=== PATIENT | female | born 1935 | race Caucasian/White ===

== ENCOUNTER → 2018-02-07 | Outpatient (CLI) | payer MEDICARE | LOC: GMAJ 14:30 | PROVIDERS: ATTEND Family Medicine | DX: D51.3 Other dietary vitamin B12 deficiency anemia (principal) ==

== ENCOUNTER → 2018-08-05 | Outpatient (CLI) | payer MEDICARE | LOC: GMAJ 12:25 | PROVIDERS: ATTEND Family Medicine | DX: E53.8 Deficiency of other specified B group vitamins (principal) ==

== ENCOUNTER → 2018-08-17 | Outpatient (CLI) | payer MEDICARE, OTHER ==
--- NOTE | 2018-08-18 09:32 | MRI ---
EXAM DESCRIPTION: Cervical Spine CLINICAL HISTORY: 83 years Female, CERVICAL DISC DISORDER WITH RADICULOPATHY COMPARISON: None. TECHNIQUE: Multisequence, multiplanar images of the cervical spine were obtained without intravenous contrast. FINDINGS: Vertebrae: No acute fracture. No acute compression deformity. Severe cervical lordosis centered at C4. AP alignment is maintained. Marrow signal predominantly within normal limits Spinal cord: The cervical cord is normal in signal and contour. Cerebellar tonsils are normal in position. Discs, facets, spinal canal, and neural foramina: Disc desiccation throughout the cervical spine. Mild disc space narrowing posteriorly at C3-C4, C4-C5, C5-C6. C2-C3: Small disc osteophyte complex. Spinal canal and neuroforamina are patent. C3-C4: No disc osteophyte complex. Mild right and moderate left facet arthropathy. Spinal canal and neuroforamina are patent. C4-C5: No disc osteophyte complex. Mild right and moderate left uncovertebral spurring. Moderate right and severe left facet arthropathy. Mild spinal canal stenosis. Neuroforamina are patent. C5-C6: Small disc osteophyte complex with moderate uncovertebral spurring. Moderate right and severe left facet arthropathy. Spinal canal is patent. Neuroforamina are patent. C6-C7: No disc osteophyte complex. Moderate uncovertebral spurring. Moderate severe facet arthropathy. Spinal canal and neuroforamina are patent. C7-T1: Spinal canal and neuroforamina are patent. Other findings: Paravertebral soft tissues unremarkable. IMPRESSION: 1. No acute fracture or acute compression deformity. 2. Cervical spondylosis with exaggerated severe kyphosis centered at C4 without listhesis. 3. No greater than mild spinal canal stenosis. 4. Spinal canal and neuroforamina are predominantly patent. Electronically signed by: Krzysztof Best MD 08/18/2018 9:29 AM CDT
--- NOTE | 2018-08-18 09:39 | MRI ---
EXAM DESCRIPTION: Lumbar Spine w/o Contrast CLINICAL HISTORY: 83 years Female, SPINAL STENOSIS LUMBAR REGION COMPARISON: MRI lumbar spine 08/15/2012 TECHNIQUE: Multisequence, multiplanar images of the lumbar spine without intravenous contrast. FINDINGS: For the purpose of this report, the designated L5-S1 disc space will be referred to as axial T2 image 3. Vertebrae: No acute fracture. No acute compression deformity. Acute moderate type I endplate change at anterior L1-L2. Mild lumbar lordosis. Trace retrolisthesis of L2 on L3 likely secondary to facet hypertrophy. Remaining AP alignment is maintained. Superimposed moderate type II degenerative endplate change at L2-L3 and mildly at L4-5, L5-S1. Spinal cord: The conus medullaris terminates at T12-L1. The nerve roots of the cauda equina are normal. Discs, facets, spinal canal, and neural foramina: Disc desiccation throughout the cervical spine. Severe L2-L3 and L4-5 disc space narrowing. L1-L2: Small disc bulge. Moderate facet arthropathy. Mild spinal canal stenosis. Mild bilateral neural foraminal stenosis. L2-L3: Small disc bulge eccentric towards left and superimposed L2 endplate osteophytic ridging. Moderate facet arthropathy. Mild spinal canal stenosis. Mild left but no right neural foraminal stenosis. L3-4: Small disc bulge. Severe right greater than left facet arthropathy. Spinal canal is patent. Mild bilateral neural foraminal stenosis. L4-5: Small disc bulge. Moderate facet arthropathy mild spinal canal stenosis. Moderate right and mild left neural foraminal stenosis. L5-S1: Minimal disc bulge. Severe facet arthropathy. Spinal canal is patent. Mild left but no right neural foraminal stenosis. Paraspinous soft tissues: Normal. IMPRESSION: 1. No acute fracture or acute compression deformity. 2. Acute Modic type I degenerative endplate change at anterior L1-L2. 3. Lumbar spondylosis with trace retrolisthesis of L2 on L3 secondary to facet hypertrophy. 4. No greater than mild spinal canal stenosis. 5. Multilevel neural foraminal compromise, greatest and moderate at right L4. Mild neural foraminal stenosis elsewhere as above. 6. No significant interval change when compared to 08/15/2012. Electronically signed by: Krzysztof Best MD 08/18/2018 9:36 AM CDT
== END ==
LOC: MRI 12:29
PROVIDERS: ATTEND Family Medicine
DX: M50.10 Cervical disc disorder with radiculopathy, unspecified cervical region (principal); M47.892 Other spondylosis, cervical region; M48.062 Spinal stenosis, lumbar region with neurogenic claudication; M47.896 Other spondylosis, lumbar region; M43.16 Spondylolisthesis, lumbar region

== ENCOUNTER → 2019-01-27 | Outpatient (CLI) | payer OTHER | LOC: GMAJ 12:43 | PROVIDERS: ATTEND Family Medicine | DX: E53.8 Deficiency of other specified B group vitamins (principal) ==